=== PATIENT | male | born 1965 | race Caucasian/White ===

== ENCOUNTER 2020-07-21 16:25 | Inpatient (IN) | payer OTHER ==
[~2020-07-21] VITALS: Ht 165.1 cm; Wt 90.0 kg
[2020-07-21 17:08] LABS: BASOPHILS % (AUTO) 0.8 % (0.0-2.0); EOSINOPHILS % (AUTO) 3.1 % (0.0-6.0); HEMATOCRIT 29 % (39-51); HEMOGLOBIN 9.7 g/dL (13.5-17.5); LYMPHOCYTES # (AUTO) 2.1 /CMM (0.8-4.8); LYMPHOCYTES % (AUTO) 37.8 % (20.0-44.0); MEAN CORPUSCULAR HGB CONC 34 g/dl (31.0-36.0); MEAN CORPUSCULAR VOLUME 94 fL (80-96); MONOCYTES # (AUTO) 0.6 /CMM (0.1-1.30); MONOCYTES % (AUTO) 11.5 % (2.0-12.0); NEUTROPHILS # (AUTO) 2.6 /CMM (1.8-8.9); NEUTROPHILS % (AUTO) 46.8 % (43.0-81.0); PLATELET COUNT (AUTO) 195 /CMM (150-450); RED BLOOD CELL COUNT(AUTO) 3.06 MIL/uL (4.5-6.0); WHITE BLOOD COUNT (AUTO) 5.6 K/uL (4.3-11.0)
[2020-07-21] MEDS ORDERED: CALC667C6 MT (17:11)
[2020-07-21] MEDS ORDERED: AMLO-213 PO (17:11)
[2020-07-21] MEDS ORDERED: CARV25TA2 PO (17:11)
[2020-07-21] MEDS ORDERED: HYDR50TA61 PO (17:11)
[2020-07-21 17:35] LABS: ALBUMIN 3.6 g/dL (3.4-5.0); BILIRUBIN,DIRECT 0.1 mg/dL (0.0-0.2); BILIRUBIN,TOTAL 0.7 mg/dL (0.2-1.0); CALCIUM, SERUM 9.3 mg/dL (8.5-10.1); CREATININE 5.8 mg/dL (0.6-1.3); POTASSIUM 3.8 mmol/L (3.5-5.1); TOTAL PROTEIN, SERUM 7.6 g/dL (6.4-8.2)
[2020-07-21] MEDS ORDERED: CLONIDINE HCL 0.1 MG TABLET PO ONE (18:30)
[2020-07-21] MEDS ORDERED: CLONIDINE HCL 0.1 MG TABLET ONE (18:46)
[2020-07-21] MEDS ORDERED: ZOLPIDEM TARTRATE 5 MG TABLET PO PRN (21:00)
[2020-07-21] MEDS ORDERED: MAG HYDROX/AL HYDROX/SIMETH 30 ML UDC PO PRN (21:00)
[2020-07-21] MEDS ORDERED: ONDANSETRON HCL/PF 4 MG/2 ML VIAL IVP PRN (21:00)
[2020-07-21] MEDS ORDERED: MAGNESIUM HYDROXIDE 30 ML UDC PO PRN (21:00)
[2020-07-21] MEDS ORDERED: Z GUARD REMEDY 2 OZ OINT TP PRN (21:00)
[2020-07-21] MEDS ORDERED: ACETAMINOPHEN 325 MG TABLET PO PRN (21:00)
[2020-07-21] MEDS ORDERED: HYDROCODONE/APAP 5/325MG TABLET PO PRN (21:00)
[2020-07-22] MEDS ORDERED: CLONIDINE HCL 0.1 MG TABLET ONE (03:14)
[2020-07-22] MEDS: CLONIDINE HCL 0.1 MG TABLET PO PRN (03:19)
[2020-07-22 04:41] LABS: BASOPHILS # (AUTO) 0.1 /CMM (0.0-0.2); BASOPHILS % (AUTO) 1.2 % (0.0-2.0); EOSINOPHILS % (AUTO) 3.3 % (0.0-6.0); HEMATOCRIT 26 % (39-51); HEMOGLOBIN 8.8 g/dL (13.5-17.5); LYMPHOCYTES # (AUTO) 1.9 /CMM (0.8-4.8); LYMPHOCYTES % (AUTO) 40.4 % (20.0-44.0); MEAN CORPUSCULAR HGB CONC 34 g/dl (31.0-36.0); MEAN CORPUSCULAR VOLUME 92 fL (80-96); MONOCYTES # (AUTO) 0.6 /CMM (0.1-1.30); MONOCYTES % (AUTO) 12.9 % (2.0-12.0); NEUTROPHILS % (AUTO) 42.2 % (43.0-81.0); PLATELET COUNT (AUTO) 177 /CMM (150-450); RED BLOOD CELL COUNT(AUTO) 2.78 MIL/uL (4.5-6.0); WHITE BLOOD COUNT (AUTO) 4.8 K/uL (4.3-11.0)
[2020-07-22 04:59] LABS: CALCIUM, SERUM 8.8 mg/dL (8.5-10.1); MAGNESIUM 2.3 mg/dL (1.8-2.4); PHOSPHORUS 4.6 mg/dL (2.5-4.9); POTASSIUM 4.7 mmol/L (3.5-5.1)
[2020-07-22] MEDS ORDERED: CARVEDILOL 12.5 MG TABLET ONE (08:36)
[2020-07-22] MEDS ORDERED: AMLODIPINE BESYLATE 10 MG TABLET ONE (08:36)
[2020-07-22] MEDS: CARVEDILOL 12.5 MG TABLET PO SCH ×2 (09:15→17:05)
[2020-07-22] MEDS: CALCIUM ACETATE 667 MG TABLET PO SCH ×3 (09:15→17:05)
[2020-07-22] MEDS: AMLODIPINE BESYLATE 10 MG TABLET PO SCH (09:15)
[2020-07-22] MEDS: hydrOXYzine 10 MG TABLET PO SCH ×2 (09:19→17:05)
[2020-07-22 21:06] VITALS: BP 145/87
[2020-07-23 00:11] VITALS: BP 166/85
[2020-07-23] MEDS: CLONIDINE HCL 0.1 MG TABLET PO PRN ×2 (00:11→05:55)
[2020-07-23 04:23] VITALS: BP 166/85
[2020-07-23 04:24] VITALS: BP 164/91
[2020-07-23 08:00] VITALS: BP 152/96
[2020-07-23] MEDS: CALCIUM ACETATE 667 MG TABLET PO SCH ×2 (09:06→11:42)
[2020-07-23] MEDS: hydrOXYzine 10 MG TABLET PO SCH (09:07)
[2020-07-23] MEDS: CARVEDILOL 12.5 MG TABLET PO SCH (09:07)
[2020-07-23] MEDS: AMLODIPINE BESYLATE 10 MG TABLET PO SCH (09:09)
[2020-07-23] MEDS ORDERED: CLON0.1T14 PO (14:24)
[2020-07-23 16:00] VITALS: BP 160/85
== END 2020-07-23 18:21 | disposition home or self-care (01) | DRG 199 ==
LOC: ER 16:58 → TRANSITION 20:54 → TELE 07-22 15:35 → MED 07-23 11:15
PROVIDERS: ADMIT Family Medicine; ATTEND Student in an Organized Health Care Education/Training Program
PROC: 5A1D70Z Performance of Urinary Filtration, Intermittent, Less than 6 Hours Per Day (ICD-10-PCS; principal; 2020-07-23)
DX: I16.1 Hypertensive emergency (principal); I13.2 Hypertensive heart and chronic kidney disease with heart failure and with stage 5 chronic kidney disease, or end stage renal disease; E11.22 Type 2 diabetes mellitus with diabetic chronic kidney disease; N18.6 End stage renal disease; Z99.2 Dependence on renal dialysis; I50.9 Heart failure, unspecified; D63.8 Anemia in other chronic diseases classified elsewhere; E66.9 Obesity, unspecified; Z68.33 Body mass index [BMI] 33.0-33.9, adult; Q78.9 Osteochondrodysplasia, unspecified; E66.01 Morbid (severe) obesity due to excess calories; E21.3 Hyperparathyroidism, unspecified; Z79.899 Other long term (current) drug therapy; I67.2 Cerebral atherosclerosis; N17.0 Acute kidney failure with tubular necrosis; Z82.49 Family history of ischemic heart disease and other diseases of the circulatory system; Z83.3 Family history of diabetes mellitus; N13.9 Obstructive and reflux uropathy, unspecified; N25.0 Renal osteodystrophy
CPT/HCPCS: 36415; 70450-TC; 71045-TC; 80048-TC; 80061-TC; 80076-TC; 82962-TC; 83735-TC; 84100-TC; 84484-TC; 85025-TC; 85730-TC; 87081-TC; 97116-TC; G0378; Q0177